=== PATIENT | male | born 1990 | race Caucasian/White ===

== ENCOUNTER 2018-04-28 09:01 | Emergency (ER) | payer OTHER ==
[~2018-04-28] VITALS: Ht 185.4 cm; Wt 142.3 kg
[~2018-04-28 09:01] MED LIST: CORICIDIN; SERT1TAB68 PO
[2018-04-28 09:08] VITALS: TEMP 36.8; Ht 185.4 cm; Wt 142.3 kg
[2018-04-28] MEDS ORDERED: CLONAZEPAM 0.5 MG TAB PO STA (09:47)
--- NOTE | 2018-04-28 10:02 | EMERGENCY ROOM VISIT NOTE ---
History Report prepared by Galina: Kofi Lucero Under the Supervision of: Dr. Deandra Elaine M.D. First contact with patient: 09:28 Chief Complaint: DETOX REQUEST Stated Complaint: PANIC,FATIGE,HEADACHE,SEVERE ANXIETY,DETOX History of Present Illness The patient is a 27 year old male who presents to the Emergency Room requesting to be hospitalized for a Klonopin detox. The patient states he has a history of an IV heroin addiction. He reports he was placed on a Klonopin rehab program in [place] by Dr. Brunner. The patient notes he was place on 2mg of Klonopin BID. He states he returned home to [place] and was place on a methadone program on Monday. The patient reports he is still having drug cravings and requested his methadone prescription be increased. He notes the rehab clinic said he could not have his dosage increased because he was on the Klonopin. The patient states he tried to detox himself from his Klonopin because his main goal is to have the methadone increased. He reports three days ago he counted out enough pills to go from 4mg a day to 2mg a day for one day to 1mg a day for two days. The patient notes he flushed the rest of his Klonopin down the toilet. He states he took his last Klonopin pill this morning. The patient reports he is having severe anxiety, a headache, and it feels like his chest is caving in. He notes he used to take gabapentin for his anxiety. The patient states the Klonopin would decrease his anxiety completely, but the gabapentin would only lower it to make it manageable. He reports he does not take SSRIs or MAOIs because they either makes him feel strange or they do not work for his anxiety. The patient notes he had an appointment with his psychiatrist that stated he could not legally be prescribe Klonopin while he is on the methadone. He states he currently smokes. Source of History: patient Onset: a few days ago Quality: other (anxiety) Timing: worsening Modifying Factors (Worsening): other (decreasing Klonopin dose) Modifying Factors (Relieving): other (gabapentin) Associated Symptoms: + headache Note: Associated symptoms: chest caving in Review of Systems See HPI for pertinent positives & negatives. A total of 10 systems reviewed and were otherwise negative. Past Medical & Surgical Medical Problems: (1) ADV EFF MEDICINAL NOS (2) ALCOHOL ABUSE-UNSPEC (3) Opioid dependence (4) Polysubstance dependence Family History Diabetes mellitus Hypertension Social History Smoking Status: Current Every Day Smoker Alcohol Use: occasionally Drug Use: none Marital Status: single Housing Status: lives with family Occupation Status: unemployed Current/Historical Medications Scheduled Clonazepam (Klonopin), 1 MG PO DIRECTED Gabapentin (Neurontin), 400 MG PO TID Methadone HCl (Methadone HCl), 30 MG PO DAILY Sertraline (Zoloft), 150 MG PO HS Allergies Coded Allergies: No Known Allergies (Verified , 04/28/18) Physical Exam Vital Signs Date Time Temp Pulse Resp B/P (MAP) Pulse Ox O2 Delivery O2 Flow Rate FiO2 04/28/18 12:14 04/28/18 12:13 84 19 142/88 93 Room Air 04/28/18 10:50 83 16 128/70 95 Room Air 04/28/18 09:08 36.8 87 22 128/95 95 Room Air Physical Exam Vital signs reviewed. General: Generally well-appearing, anxious and agitated 27 year old male, in no significant distress. HEENT: No scleral icterus, PERRLA, neck supple. Atraumatic. Cardiovascular: Regular rate and rhythm, no extra sounds. Pulmonary: Clear to auscultation bilaterally, normal work of breathing. Abdomen: Soft, nontender, nondistended, positive bowel sounds. Musculoskeletal: Atraumatic, no peripheral edema. Neurologic: Patient awake alert and oriented x 3, full strength in all 4 extremities. Cranial nerves 2 through 12 grossly intact. Skin: Warm, dry, no rash Medical Decision & Procedures Laboratory Results 04/28/18 10:05 Red Blood Count 5.01, Mean Corpuscular Volume 89.0, Mean Corpuscular Hemoglobin 31.3, Mean Corpuscular Hemoglobin Concent 35.2, Mean Platelet Volume 9.8, Neutrophils (%) (Auto) 69.4, Lymphocytes (%) (Auto) 17.1, Monocytes (%) (Auto) 8.1, Eosinophils (%) (Auto) 5.0, Basophils (%) (Auto) 0.2, Neutrophils # (Auto) 8.78, Lymphocytes # (Auto) 2.16, Monocytes # (Auto) 1.02, Eosinophils # (Auto) 0.63, Basophils # (Auto) 0.03 8/11/18 10:05 Test 04/28/18 10:05 04/28/18 10:15 White Blood Count 12.64 K/uL (4.8-10.8) Red Blood Count 5.01 M/uL (4.7-6.1) Hemoglobin 15.7 g/dL (14.0-18.0) Hematocrit 44.6 % (42-52) Mean Corpuscular Volume 89.0 fL (80-100) Mean Corpuscular Hemoglobin 31.3 pg (25-34) Mean Corpuscular Hemoglobin Concent 35.2 g/dl (32-36) Platelet Count 220 K/uL (130-400) Mean Platelet Volume 9.8 fL (7.4-10.4) Neutrophils (%) (Auto) 69.4 % Lymphocytes (%) (Auto) 17.1 % Monocytes (%) (Auto) 8.1 % Eosinophils (%) (Auto) 5.0 % Basophils (%) (Auto) 0.2 % Neutrophils # (Auto) 8.78 K/uL (1.4-6.5) Lymphocytes # (Auto) 2.16 K/uL (1.2-3.4) Monocytes # (Auto) 1.02 K/uL (0.11-0.59) Eosinophils # (Auto) 0.63 K/uL (0-0.5) Basophils # (Auto) 0.03 K/uL (0-0.2) RDW Standard Deviation 43.9 fL (36.4-46.3) RDW Coefficient of Variation 13.6 % (11.5-14.5) Immature Granulocyte % (Auto) 0.2 % Immature Granulocyte # (Auto) 0.02 K/uL (0.00-0.02) Anion Gap 6.0 mmol/L (3-11) Est Creatinine Clear Calc Drug Dose 156.7 ml/min Estimated GFR () 112.2 Estimated GFR (Non- 96.8 BUN/Creatinine Ratio 9.1 (10-20) Calcium Level 9.0 mg/dl (8.5-10.1) Total Bilirubin 0.6 mg/dl (0.2-1) Direct Bilirubin 0.2 mg/dl (0-0.2) Aspartate Amino Transf (AST/SGOT) 79 U/L (15-37) Alanine Aminotransferase (ALT/SGPT) 43 U/L (12-78) Alkaline Phosphatase 127 U/L (45-117) Total Protein 7.5 gm/dl (6.4-8.2) Albumin 4.0 gm/dl (3.4-5.0) Thyroid Stimulating Hormone (TSH) 2.050 uIu/ml (0.300-4.500) Salicylates Level 4.6 mg/dl (2.8-20) Acetaminophen Level < 2 ug/ml (10-30) Ethyl Alcohol mg/dL < 3.0 mg/dl (0-3) Urine Color YELLOW Urine Appearance CLEAR (CLEAR) Urine pH 7.0 (4.5-7.5) Urine Specific Macy 1.007 (1.000-1.030) Urine Protein NEG (NEG) Urine Glucose (UA) NEG (NEG) Urine Ketones NEG (NEG) Urine Occult Blood NEG (NEG) Urine Nitrite NEG (NEG) Urine Bilirubin NEG (NEG) Urine Urobilinogen NEG (NEG) Urine Leukocyte Esterase NEG (NEG) Urine Opiates Screen NEG (NEG) Urine Methadone, Qualitative POS (NEG) Urine Barbiturates NEG (NEG) Urine Phencyclidine (PCP) Level NEG (NEG) Ur Amphetamine/Methamphetamine NEG (NEG) MDMA (Ecstasy) Screen NEG (NEG) Urine Benzodiazepines Screen NEG (NEG) Urine Cocaine Metabolite NEG (NEG) Urine Marijuana (THC) NEG (NEG) Laboratory results per my review. Medications Administered Medications (Trade) Dose Ordered Sig/Frantz Route Start Time Stop Time Status Last Admin Dose Admin Clonazepam (Klonopin Tab) 0.5 mg NOW STAT PO 04/28/18 09:47 04/28/18 09:48 DC 04/28/18 10:08 0.5 MG Diphenoxylate HCl/ Atropine (Lomotil Tab) 2 tab NOW ONCE PO 04/28/18 11:45 04/28/18 11:46 DC 04/28/18 11:52 2 TAB ED Course 0932: Past medical records reviewed. The patient was evaluated in room B05. A complete history and physical examination was performed. 1111: Case management will speak with the patient about rehab centers. 1157: Upon reevaluation, the patient appeared to have improvement of his symptoms. I discussed findings with him. He verbalized agreement of the treatment plan. The patient was discharged home. Medical Decision Differential diagnosis: Etiologies such as toxicologic, infection, hypoglycemia, electrolyte abnormalities, cardiac sources, intracerebral event, neurologic, as well as others were entertained. This patient was evaluated and appeared to be in no significant distress. IV access was obtained and laboratory work was drawn. The patient was placed on the environmental monitoring technician and found to be in a normal sinus rhythm. Patient's blood pressure is stable. Patient was given 1/2 mg of Klonopin in the emergency department. Laboratory work is fairly unrevealing. After consultation with psychiatric case management, phone calls were made to [facility] for rehabilitation services. The patient stated on multiple occasions that he was able to get through but would not release the phone number he was using. Case management was not able to reach anybody at [facility]. As the patient is on methadone and is looking for increased dosing, it is unlikely that the patient will be accepted at the rehabilitation facility. He is comfortable with the plan for tapering off of his Klonopin. His grandmother is at the bedside and states she will assist by holding the medication. The patient was given a regimen to decrease the dose every 2 days. He was given 14 tablets. It was reiterated that he will need treatment for his anxiety above and beyond methadone. The patient believes that Neurontin is his answer and asked for a prescription for this medication. I declined refilling any of his medications other than the Klonopin taper we agreed to. He will return to the ED for worsening of symptoms or any medical concerns. Medication Reconcilliation Current Medication List: was personally reviewed by me Blood Pressure Screening Patient's blood pressure: Normal blood pressure Blood pressure disposition: Did not require urgent referral Impression Primary Impression: Polysubstance dependence Scribe Attestation The scribe's documentation has been prepared under my direction and personally reviewed by me in its entirety. I confirm that the note above accurately reflects all work, treatment, procedures, and medical decision making performed by me. Departure Information Dispostion Home / Self-Care Prescriptions Clonazepam (Klonopin) 1 Mg Tab 1 MG PO DIRECTED, #13 TAB 1.5 tab 2x day for 2 days, 1 tab 2x daily for 2 days, 0.5 tab 2x daily for 2 days, 1/2 tab daily for 2 days then off Prov: Deandra Elaine M.D. 04/28/18 Referrals Peterson Maier M.D. (PCP) Forms HOME CARE DOCUMENTATION FORM, IMPORTANT VISIT INFORMATION, WORK / SCHOOL INSTRUCTIONS Patient Instructions ED Withdrawal Benzodiazepine, My [facility] Additional Instructions Diagnosis: Benzodiazepine dependency Please cut down to 1-1/2 tablets (or 1.5 mg) of Klonopin twice daily for 2 days , Then 1 tab (1 mg) twice daily for 2 days, then 0.5 tabs (0.5 mg) twice daily for 2 days, then one half tablet daily for 2 days, then stop. Drink plenty of clear fluids. Follow-up with [facility] drugs and alcohol as soon as possible. Follow-up with your methadone clinic as directed. Return to the emergency department for worsening of symptoms or any medical concerns.
[2018-04-28 10:19] LABS: BASO % 0.2 %; BASO ABS # 0.03 K/uL (0-0.2); EOS ABS # 0.63 K/uL (0-0.5); HEMATOCRIT 44.6 % (42-52); HEMOGLOBIN 15.7 g/dL (14.0-18.0); IG# 0.02 K/uL (0.00-0.02); LYMPH % 17.1 %; LYMPH ABS # 2.16 K/uL (1.2-3.4); MEAN CORPUSCULAR HEMOGLOBIN 31.3 pg (25-34); MEAN CORPUSCULAR HGB CONC 35.2 g/dl (32-36); MEAN PLATELET VOLUME 9.8 fL (7.4-10.4); MONO % 8.1 %; MONO ABS # 1.02 K/uL (0.11-0.59); NEUT % 69.4 %; NEUT ABS # 8.78 K/uL (1.4-6.5); PLATELET COUNT 220 K/uL (130-400); RED CELL DISTRIBUTION WIDTH CV 13.6 % (11.5-14.5); RED CELL DISTRIBUTION WIDTH SD 43.9 fL (36.4-46.3); WHITE BLOOD COUNT 12.64 K/uL (4.8-10.8)
[2018-04-28 10:47] LABS: CREATININE 1.05 mg/dl (0.60-1.40); POTASSIUM 3.9 mmol/L (3.5-5.1); TOTAL PROTEIN 7.5 gm/dl (6.4-8.2)
[2018-04-28] MEDS ORDERED: GABA-1220 PO (11:10)
[2018-04-28] MEDS ORDERED: MTHL PO (11:10)
[2018-04-28] MEDS ORDERED: SERT-234 PO (11:10)
[2018-04-28] MEDS ORDERED: DIPHENOXYLATE/ATROPINE 2.5/0.025MG TAB PO ONE (11:45)
[2018-04-28] MEDS ORDERED: CLON1TAB10 PO (11:53)
[2018-04-28 12:13] VITALS: BP 142/88; PULSE 84; O2SAT 93
== END 2018-04-28 12:15 | disposition home or self-care (01) ==
LOC: C.EDB 09:03
DX: F19.20 Other psychoactive substance dependence, uncomplicated (principal); F41.9 Anxiety disorder, unspecified; F11.21 Opioid dependence, in remission; F17.200 Nicotine dependence, unspecified, uncomplicated; F15.20 Other stimulant dependence, uncomplicated; Z87.898 Personal history of other specified conditions; Z79.899 Other long term (current) drug therapy

== ENCOUNTER 2018-05-07 10:12 | Emergency (ER) | payer OTHER ==
[~2018-05-07] VITALS: Ht 185.4 cm; Wt 145.1 kg
[~2018-05-07 10:12] MED LIST changes: +CLON1TAB10 PO; -CORICIDIN; +GABA-1220 PO; +MTHL PO; +SERT-234 PO; -SERT1TAB68 PO
[2018-05-07 10:29] VITALS: BP 147/92; PULSE 92; TEMP 36.8; O2SAT 98; Ht 185.4 cm; Wt 145.1 kg
[2018-05-07] MEDS ORDERED: QUET1TAB9 PO (10:48)
[2018-05-07] MEDS ORDERED: CLON2TAB10 PO (10:48)
--- NOTE | 2018-05-07 11:35 | EMERGENCY ROOM VISIT NOTE ---
History Report prepared by Galina: Arthur Camara Under the Supervision of: Dr. Crescencio Alcazar M.D. First contact with patient: 10:40 Chief Complaint: DETOX REQUEST Stated Complaint: WITHDRAW History of Present Illness The patient is a 27 year old male who presents to the Emergency Room wanting a prescription for Klonopin. The patient reports that he was seen on April 28, and was prescribed a taper of 13 tablets that was supposed to last 8 days. He reports that he had an appointment on April [address] Rowe, but states that he refused to see him. He reports that he "seized out" recently. He notes that he has an appointment scheduled with [place] [facility] for the , and would like a weak prescription to last him until he sees the psychiatrist. The patient reports that his last use of heroin was in March 2017, and he used powdered fentanyl in May 2017. He denies hallucinations, homicidal ideation, or suicidal ideation. He also reports that he has been experiencing diarrhea and high anxiety for the past 2 weeks. Source of History: patient Onset: prescribed Klonopin on April 28 Position: other (global) Quality: other (prescription request) Timing: other (prescription to last until May 14) Associated Symptoms: + diarrhea Note: anxiety Review of Systems See HPI for pertinent positives and negatives. A total of ten systems were reviewed and were otherwise negative. Past Medical & Surgical Medical Problems: (1) ADV EFF MEDICINAL NOS (2) ALCOHOL ABUSE-UNSPEC (3) Opioid dependence (4) Polysubstance dependence Family History Diabetes mellitus Hypertension Social History Smoking Status: Current Every Day Smoker Smokeless Tobacco Use: Yes Alcohol Use: occasionally Drug Use: none Marital Status: single Housing Status: lives with family Occupation Status: unemployed Current/Historical Medications Scheduled Clonazepam (Klonopin), 4 MG PO DAILY Clonazepam (Klonopin), 1 MG PO DIRECTED Gabapentin (Neurontin), 400 MG PO TID Methadone HCl (Methadone HCl), 38 MG PO DAILY Quetiapine Fumarate (Seroquel), 150 MG PO HS Allergies Coded Allergies: No Known Allergies (Verified , 05/07/18) Physical Exam Vital Signs Date Time Temp Pulse Resp B/P (MAP) Pulse Ox O2 Delivery O2 Flow Rate FiO2 05/07/18 10:29 36.8 92 16 147/92 98 Room Air Physical Exam GENERAL: Awake, alert, well-appearing, NAD. Appears obese. HENT: Normocephalic, atraumatic. EYES: Normal conjunctiva. Sclera non-icteric. PERRL. No anisocoria. NECK: Supple. No nuchal rigidity. FROM. RESPIRATORY: CTAB, no rhonchi, wheezing, crackles CARDIAC: RRR, no MRG ABDOMEN: Soft, NTND, BS+ MSK: No chest wall TTP, no LE edema NEURO: GCS 15, CN 2-12 intact, moves all 4s on command SKIN: No rash or jaundice noted. PSYCH: No SI or HI. No AVH. Medical Decision & Procedures ED Course 1052: The patient was evaluated in room A5. A complete history and physical exam was performed. 1140: I reevaluated the patient. Discussed results and discharge instructions: He verbalized understanding and agreement. The patient is ready for discharge. Medical Decision Nursing notes reviewed. Ancillary studies and prior records reviewed. The patient is a 27 year old male who presents to the Emergency Room wanting a prescription for Klonopin. Differential diagnosis: Etiologies such as medication refill, mood disorder, infection, hypoglycemia, electrolyte abnormalities, cardiac sources, intracerebral event, toxicologic, neurologic, as well as others were entertained. Patient was seen and evaluated the bedside. Patient was seen on April 28 where he was prescribed a taper for benzodiazepine. There is a concern as the patient states that he had flushed his primarily medicine down the toilet. The patient did show a 2 mg twice daily prescription that was filled on April 16 in [place]. The patient did have a 30 day supply of 60 tablets. The patient does state that he has been taking 0.53 friends in order to make sure that he does not "sees out". The patient is not tremulous and does not show acute signs of benzodiazepine withdrawal. I did review the GAS APPLIANCE REPAIRER the patient is not listed here. The patient has no SI, HI, or AVH. The patient does have a follow-up appointment with [facility]. I did discuss with the patient that we would be willing to prescribe another dose but that this could not be a prolonged occurrence that he needs try to get off the medication or find a prescriber that will follow him. We discussed giving him 1 mg tablets twice daily however the patient did state that he had a ride and would be able to receive 0.5 mg. This was ascertained and the patient did not have a ride so he was not given a dose here in the hospital. Patient was also not given his many tablets but was placed again on a taper. The patient was given strict executive assistant to general counsel as this is a controlled substance and it can cause respiratory depression or other issues. Patient was given strict follow-up, discharge, and return precautions. All questions were answered. Patient was deemed suitable for outpatient follow-up at this time. Patient agreed with the plan of care and was safely discharged home. Medication Reconcilliation Current Medication List: was personally reviewed by me Blood Pressure Screening Patient's blood pressure: Elevated blood pressure Blood pressure disposition: Elevated BP felt to be situational Impression Primary Impression: Benzodiazepine dependence Additional Impression: Encounter for smoking cessation counseling Scribe Attestation The scribe's documentation has been prepared under my direction and personally reviewed by me in its entirety. I confirm that the note above accurately reflects all work, treatment, procedures, and medical decision making performed by me. Departure Information Dispostion Home / Self-Care Prescriptions Clonazepam (KLONOPIN) 1 Mg Tab 1 MG PO DIRECTED, #13 TAB 1.5 tab 2x day for 2 days, 1 tab 2x daily for 2 days, 0.5 tab 2x daily for 2 days, 1/2 tab daily for 2 days then off Prov: Crescencio Alcazar M.D. 05/07/18 Referrals No Doctor, Assigned (PCP) Forms HOME CARE DOCUMENTATION FORM, IMPORTANT VISIT INFORMATION, WORK / SCHOOL INSTRUCTIONS Patient Instructions ED Withdrawal Benzodiazepine, My [facility] Additional Instructions Please return to the emergency department if you have worsening or recurrent symptoms not amenable to at-home treatment. Please call for a follow-up appointment with her primary care physician. Please take your medications as prescribed. If you have other concerns and/or complaints please feel free to also call your primary care physician's office or return the ED for further evaluation, management, and treatment. You were found to have an elevated blood pressure today (>120 sytolic or >90 diastolic). Per medicare guidelines, you need to follow up with this blood pressure screening with your Primary Care Physician (PCP). For a new PCP call [phone]. You received narcotic or benzodiazepene medication while in the emergency room today. This is an addictive medication that may cause drowziness as well as constipation. Do not drive, operate heavy machinery, or drink alcohol under the influence of this medication. You may take 600 mg Ibuprofen every 6 hours as needed for pain/fever with food unless told by your physician not to take NSAIDs. You may take tylenol 650 mg every 6 hours as needed for pain/fever unless told by your physician to not take it or have liver problems. You may take motrin and tylenol separately or at the same time. Take your medications as prescribed. Do not drink, drive, or work while taking this medication. This may cause respiratory depression and may cause addiction. Please follow-up with a primary care provider as well as [place]. Consider smoking cessation. You have been examined and treated today on an emergency basis only. This is not a substitute for, or an effort to provide, complete comprehensive medical care. It is impossible to recognize and treat all injuries or illnesses in a single emergency department visit. It is therefore important that you follow up closely with [facility], your PCP, and/or your specialist(s). Call as soon as possible for an appointment. Thank you for your time and consideration. I look forward to speaking with you again soon. Please don't hesitate to call us if you have any questions. Problem Qualifiers
[2018-05-07] MEDS ORDERED: CLON1TAB4 PO (11:41)
== END 2018-05-07 11:56 | disposition home or self-care (01) ==
LOC: C.EDB 10:15 → C.EDA 11:56
DX: T42.4X4A Poisoning by benzodiazepines, undetermined, initial encounter (principal); X58.XXXA Exposure to other specified factors, initial encounter; F14.23 Cocaine dependence with withdrawal; F17.200 Nicotine dependence, unspecified, uncomplicated